=== PATIENT | male | born 1985 | race Caucasian/White ===

== ENCOUNTER → 2017-07-25 | Outpatient (CLI) | payer OTHER | LOC: FIMAGING 21:01 | PROVIDERS: ATTEND Family Medicine | DX: M51.36 Other intervertebral disc degeneration, lumbar region (principal) ==

== ENCOUNTER → 2017-08-01 | Outpatient (CLI) | payer OTHER | LOC: FIMAGING 15:23 | PROVIDERS: ATTEND Family Medicine | DX: M51.36 Other intervertebral disc degeneration, lumbar region (principal); M47.16 Other spondylosis with myelopathy, lumbar region ==

== ENCOUNTER 2018-02-22 13:57 | Emergency (ER) | payer OTHER ==
--- NOTE | 2018-02-22 14:14 | EDPHY ---
HPI/HX/ROS/PE/MDM Narrative: CHIEF COMPLAINT: Headache, stiff and painful neck HPI: The patient is a 32 y/o male with a history of chronic back pain complaining of a worsening, gradual onset, severe headache and neck pain status post L4-5 epidural injection on 02/18, 4 days ago. During the injection there were multiple needle sticks as they initially missed the appropriate location for the injection. Around 1-2 hours after the injection, he developed a consistent headache. The following day the headache worsened into a migraine that was behind his eyes. He normally has headaches in this location, but the severity is much worse than prior headaches. Due to the severity of the migraine he was unable to go to work. Yesterday he developed neck pain and stiffness that radiates down his spine associated with feeling dizzy, nauseous, and subjectively febrile. Denies numbness or weakness. His symptoms are worse in the morning and intensify when standing up. Ibuprofen, Tylenol, and Suboxone have not provided relief of his symptoms. Denies chest pain, shortness of breath , abdominal pain, urinary or bowel complaints. REVIEW OF SYSTEMS: Aside from elements discussed in the HPI, a comprehensive 10-point review of systems was reviewed and is negative. PMH: Chronic back pain, hypertension, depression, anxiety, drug abuse SOCIAL HISTORY: Friend at bedside, lives in [facility] PHYSICAL EXAM: General: Patient is lying flat in a dark room. ENT: Eyes are normal to inspection. ENT inspection normal. Neck: Normal inspection. Full range of motion. Respiratory: No respiratory distress. Breath sounds normal bilaterally. Cardiovascular: Regular rate and rhythm. Strong peripheral pulses. Normal cap refill. Abdomen: The abdomen is nontender to palpation. There are no peritoneal signs. There are normal bowel sounds. Back: No sign of infection at site of L4-5 injection. Normal to inspection. No tenderness to palpation. Skin: Normal color. No rash. Warm and dry. Extremities: Normal appearance. Full range of motion. Neuro: Oriented x3. Normal motor function. Normal sensory function. ED Course: 1503: I spoke with Dr. Miller, radiologist, who reports the patients head CT is negative for acute findings. 1523: Reassessed patient and discussed laboratory and imaging findings. He is feeling better after 30mg IV Toradol, 6mg SC Imitrex, and 1L IV NS. However, the headache is still present when he sits up. 1530: I consulted with Dr. Rosales, anesthesiologist, who agrees to consult on this patient and perform a blood patch. 1710: Dr. Rosales has completed the blood patch. Return precautions provided; patient is comfortable with this plan. MDM: This patient presents with severe positional headache after undergoing an epidural steroid injection a few days ago. I considered meningitis, but patient is afebrile, has no meningisumus and has a normal WBC count. His CTH is negative for bleed or tumor. He received a great deal of relief from IV hydration and meds, and even more from the blood patch. He feels comfortable going home. - Data Points Imaging Results: Imaging Impressions Head CT 02/22/18 14:19 Impression: Normal. Results called and discussed with Ronen Brown MD at 02/22/2018 15:03. Imaging: Discussed imaging studies w/ call or contact centre manager Radiologist, I viewed and interpreted images myself Laboratory Results: Laboratory Results 02/22/18 14:23 02/22/18 14:23 02/22/18 02/22/18 14:23 14:23 WBC 5.61 10^3/uL 10^3/uL (3.80-9.50) RBC 5.54 10^6/uL 10^6/uL (4.40-6.38) Hgb 17.8 g/dL H g/dL (13.7-17.5) Hct 50.2 % % (40.0-51.0) MCV 90.6 fL fL (81.5-99.8) MCH 32.1 pg pg (27.9-34.1) MCHC 35.5 g/dL g/dL (32.4-36.7) RDW 13.0 % % (11.5-15.2) Plt Count 253 10^3/uL 10^3/uL (150-400) MPV 9.4 fL fL (8.7-11.7) Neut % (Auto) 64.8 % % (39.3-74.2) Lymph % (Auto) 23.9 % % (15.0-45.0) [place] % (Auto) 9.3 % % (4.5-13.0) Eos % (Auto) 1.1 % % (0.6-7.6) Baso % (Auto) 0.5 % % (0.3-1.7) Nucleat RBC Rel Count 0.0 % % (0.0-0.2) Absolute Neuts (auto) 3.64 10^3/uL 10^3/uL (1.70-6.50) Absolute Lymphs (auto) 1.34 10^3/uL 10^3/uL (1.00-3.00) Absolute Monos (auto) 0.52 10^3/uL 10^3/uL (0.30-0.80) Absolute Eos (auto) 0.06 10^3/uL 10^3/uL (0.03-0.40) Absolute Basos (auto) 0.03 10^3/uL 10^3/uL (0.02-0.10) Absolute Nucleated RBC 0.00 10^3/uL 10^3/uL (0-0.01) Immature Gran % 0.4 % % (0.0-1.1) Immature Gran # 0.02 10^3/uL 10^3/uL (0.00-0.10) Sodium 134 mEq/L L mEq/L (135-145) Potassium 3.6 mEq/L mEq/L (3.3-5.0) Chloride 98 mEq/L mEq/L (97-110) Carbon Dioxide 29 mEq/l mEq/l (22-31) Anion Gap 7 mEq/L L mEq/L (8-16) BUN 11 mg/dL mg/dL (7-23) Creatinine 0.8 mg/dL mg/dL (0.7-1.3) Estimated GFR > 60 Glucose 114 mg/dL H mg/dL (70-100) Calcium 9.6 mg/dL mg/dL (8.5-10.4) Medications Given: Discontinued Medications Sodium Chloride (Ns) 1,000 mls @ 0 mls/hr IV ONCE ONE; Wide Open PRN Reason: Protocol Stop: 02/22/18 14:19 Last Admin: 02/22/18 14:33 Dose: 1,000 mls Ketorolac Tromethamine (Toradol) 30 mg IVP EDNOW ONE Stop: 02/22/18 14:19 Last Admin: 02/22/18 14:33 Dose: 30 mg Sumatriptan Succinate (Imitrex Sc Injection) 6 mg SC EDNOW ONE Stop: 02/22/18 14:21 Last Admin: 02/22/18 14:33 Dose: 6 mg General Time Seen by Provider: 02/22/18 14:11 Initial Vital Signs: Initial Vital Signs Temperature (C) 36.7 C 02/22/18 14:01 Heart Rate 84 02/22/18 14:01 Respiratory Rate 18 02/22/18 14:01 Blood Pressure 135/80 H 02/22/18 14:01 O2 Sat (%) 100 02/22/18 14:01 O2 Delivery Mode Room Air Allergies/Adverse Reactions: No Known Allergies Allergy (Verified 12/16/15 12:16) Home Medications: Medication Instructions Recorded Escitalopram Oxalate 02/22/18 Suboxone 12 mg-3 mg Sl Film 02/22/18 Venlafaxine 25MG (*) 02/22/18 Departure - Departure Disposition: Home, Routine, Self-Care Clinical Impression: Post-dural puncture headache Migraine headache Qualifiers: Migraine type: unspecified Status migrainosus presence: with status migrainosus Intractability: not intractable Qualified Code(s): G43.901 - Migraine, unspecified, not intractable, with status migrainosus Post-procedural headache Qualifiers: Encounter type: initial encounter Qualified Code(s): T81.89XA - Other complications of procedures, not elsewhere classified, initial encounter Condition: Good Instructions: Migraine Headache (ED), Acute Headache (ED), Epidural Blood Patch (DC) Additional Instructions: Do not perform any strenuous physical activity for 72 hours. Follow-up with your primary care physician within 72 hours. Return to the emergency department immediately for recurrence of headache, nausea, vomiting, numbness, weakness, neck pain, fever or other concerns. Use Tylenol and/or ibuprofen as directed. Referrals: Bart Farah DO [Doctor of Osteopathy] - As per Instructions Report Scribed for: Ronen Brown Report Scribed by: Rebecca Blanton Date of Report: 02/22/18 Time of Report: 14:14 Physician Review and Approval Statement: Portions of this note were transcribed by an ED scribe. I personally performed the history, physical exam, and medical decision making; and confirm the accuracy of the information in the transcribed note.
[2018-02-22] MEDS ORDERED: NS 1,000 ML IV ONE (14:18)
[2018-02-22] MEDS ORDERED: KETOROLAC 30 MG/1 ML SDV IVP ONE (14:18)
[2018-02-22] MEDS ORDERED: SUMAtriptan 6 MG/0.5 ML VIAL SC ONE (14:20)
[2018-02-22 14:36] LABS: PLATELET COUNT 253 10^3/uL (150-400)
--- NOTE | 2018-02-22 17:06 | PDCONSULT ---
Washer Operator Note: Epidural blood patch Pt. 32y/o male after epidural steroids injection developed headache. Pt is healthy male with no other medical problems. PMH Healthy Allergies NKA Meds None PE: aaox3 in no distress Lungs clear heart no murmur appreciated Awc1, tmd 3fb, neck from Assessement Post dural punctrure headache Plan: Epidural blood patch Epidural blood Patch note: Area prepped and drapped back and right UE. Blood drawn sterily 20ml from r antecubital vein L2/L3 epidural space accessed by tuohy needle 18g PASQUALE 7cm Blood injected 15ml q5ml no complications, paresthesia noted. Thank you Connie
[2018-02-22 17:49] VITALS: BP 117/66
== END 2018-02-22 17:44 | disposition home or self-care (01) ==
DX: T88.59XA Other complications of anesthesia, initial encounter (principal); G43.901 Migraine, unspecified, not intractable, with status migrainosus; I10 Essential (primary) hypertension; E86.9 Volume depletion, unspecified; Y82.8 Other medical devices associated with adverse incidents
CPT/HCPCS: 96374; J1885; J3030

== ENCOUNTER 2018-07-22 00:56 | Emergency (ER) | payer OTHER ==
[2018-07-22] MEDS ORDERED: fentaNYL 100 MCG/2 ML INJ IVP ONE (01:21)
[2018-07-22] MEDS ORDERED: ASPIRIN 81 MG CHEWABLE TAB PO ONE (01:21)
--- NOTE | 2018-07-22 01:22 | EDPHY ---
H & P Stated Complaint: L SIDED CP,SOB X 1 HR Time Seen by Provider: 07/22/18 01:12 HPI/ROS: Chief Complaint: Chest pain HPI: 32-year-old male had sudden onset of left-sided chest pain while sleeping 1 hr ago. Patient states that hurts to take a deep breath. It is nonradiating. Does not have a history of similar episodes in the past. Does not smoke. No family history of coronary artery disease or sudden cardiac . Pain is a 10/10. Is associated with some shortness of breath and a sensation he cannot take a deep breath. Has had recent cough and was diagnosed with adenovirus by his primary care physician earlier in the day. No nausea vomiting or diarrhea. No fevers or chills. ROS: 10 systems were reviewed and were negative except those elements noted in the HPI. PMH: Chronic back pain Social History: No smoking, occasional alcohol, no recreational drug use Family History: non-contributory Physical Exam: Gen: Awake, Alert, No Distress HEENT: Nose: no rhinorrhea Eyes: PERRLA, EOMI Mouth: Moist mucosa Neck: Supple, no JVD Chest: nontender, lungs clear to auscultation Heart: S1, S2 normal, no murmur Abd: Soft, non-tender, no guarding Back: no CVA tenderness, no midline tenderness Ext: no edema, non-tender Skin: no rash Neuro: CN II-XII intact, Sensation grossly intact, Strength 5/5 in bilateral upper and lower extremities - Personal History Current Tetanus Diphtheria and Acellular Pertussis (TDAP): Unsure Tetanus Vaccine Date: within 10 years - Medical/Surgical History Hx Asthma: No Hx Chronic Respiratory Disease: No Hx Diabetes: No Hx Cardiac Disease: No Hx Renal Disease: No Hx Cirrhosis: No Hx Alcoholism: No Hx HIV/AIDS: No Hx Splenectomy or Spleen Trauma: No Other PMH: PMH: depression, HTN, back pain, anxiety, eye surgery, drug abuse - Social History Smoking Status: Former smoker Constitutional: Initial Vital Signs Temperature (C) 37.0 C 07/22/18 00:56 Heart Rate 114 H 07/22/18 00:56 Respiratory Rate 16 07/22/18 00:56 Blood Pressure 147/106 H 07/22/18 00:56 O2 Sat (%) 95 07/22/18 00:56 O2 Delivery Mode Nasal Cannula O2 (L/minute) 2 Allergies/Adverse Reactions: No Known Allergies Allergy (Verified 12/16/15 12:16) Home Medications: Medication Instructions Recorded Azithromycin [Zithromax] 250 mg PO DAILY #4 tab 07/22/18 Hydrocodone/Acetaminophen 1 - 2 each PO Q4-6PRN PRN #10 07/22/18 [Hydrocodon-Acetaminophen 5-325] tablet Medical Decision Making - Diagnostics EKG Interpretation: ECG time 1:03 a.m., sinus rhythm with a rate 96, normal axis, there is evidence of early repolarization with possible left anterior fascicular block. No acute ST or T-wave changes. ED Course/Re-evaluation: 32-year-old male with left-sided chest pain. There is a left sided infiltrate on his chest x-ray. ECG is unremarkable. Troponins x2 are negative. D-dimer is normal. He has been treated with oral azithromycin. Will discharge with a full 5 day course. Refer for outpatient follow-up, return for worsening. I do not see any evidence of acute coronary syndrome at this time. Does not have any risk factors for coronary disease. I have reviewed the results of the initial diagnostic testing and the risk factors with the patient, including the results of the troponin and the ECG. We have also discussed the results of the repeat troponin. The patient understands that since these are negative, the risk of having a heart attack or heart complication within the next 30 days is 1%, or 1/100. We discussed the patient's personal risk level evaluation and we discussed the importance of follow-up. If their symptoms are to worsen or if they are unable to get follow- up with one-week the patient will return to the emergency department. The decision to be discharged for outpatient follow-up was made by a shared decision making process between myself and the patient. - Data Points Laboratory Results: Laboratory Results 07/22/18 01:31 07/22/18 01:31 07/22/18 07/22/18 07/22/18 04:31 01:34 01:31 WBC RBC Hgb Hct MCV MCH MCHC RDW Plt Count MPV Neut % (Auto) Lymph % (Auto) [place]ades % (Auto) Eos % (Auto) Baso % (Auto) Nucleat RBC Rel Count Absolute Neuts (auto) Absolute Lymphs (auto) Absolute Monos (auto) Absolute Eos (auto) Absolute Basos (auto) Absolute Nucleated RBC Immature Gran % Immature Gran # D-Dimer Sodium 140 mEq/L mEq/L (135-145) Potassium 4.2 mEq/L mEq/L (3.3-5.0) Chloride 103 mEq/L mEq/L (97-110) Carbon Dioxide 26 mEq/l mEq/l (22-31) Anion Gap 11 mEq/L mEq/L (6-14) BUN 16 mg/dL mg/dL (7-23) Creatinine 0.9 mg/dL mg/dL (0.7-1.3) Estimated GFR > 60 Glucose 109 mg/dL H mg/dL (70-100) Calcium 9.0 mg/dL mg/dL (8.5-10.4) POC Troponin I 0.00 ng/mL ng/mL 0.00 ng/mL ng/mL (0.00-0.08) (0.00-0.08) 07/22/18 07/22/18 01:31 01:31 WBC 15.62 10^3/uL H 10^3/uL (3.80-9.50) RBC 4.96 10^6/uL 10^6/uL (4.40-6.38) Hgb 15.8 g/dL g/dL (13.7-17.5) Hct 45.7 % % (40.0-51.0) MCV 92.1 fL fL (81.5-99.8) MCH 31.9 pg pg (27.9-34.1) MCHC 34.6 g/dL g/dL (32.4-36.7) RDW 12.6 % % (11.5-15.2) Plt Count 250 10^3/uL 10^3/uL (150-400) MPV 8.9 fL fL (8.7-11.7) Neut % (Auto) 81.4 % H % (39.3-74.2) Lymph % (Auto) 7.9 % L % (15.0-45.0) Glades % (Auto) 9.4 % % (4.5-13.0) Eos % (Auto) 0.6 % % (0.6-7.6) Baso % (Auto) 0.3 % % (0.3-1.7) Nucleat RBC Rel Count 0.0 % % (0.0-0.2) Absolute Neuts (auto) 12.71 10^3/uL H 10^3/uL (1.70-6.50) Absolute Lymphs (auto) 1.23 10^3/uL 10^3/uL (1.00-3.00) Absolute Monos (auto) 1.47 10^3/uL H 10^3/uL (0.30-0.80) Absolute Eos (auto) 0.10 10^3/uL 10^3/uL (0.03-0.40) Absolute Basos (auto) 0.05 10^3/uL 10^3/uL (0.02-0.10) Absolute Nucleated RBC 0.00 10^3/uL 10^3/uL (0-0.01) Immature Gran % 0.4 % % (0.0-1.1) Immature Gran # 0.06 10^3/uL 10^3/uL (0.00-0.10) D-Dimer 0.40 ug/mLFEU ug/mLFEU (0.00-0.50) Sodium Potassium Chloride Carbon Dioxide Anion Gap BUN Creatinine Estimated GFR Glucose Calcium POC Troponin I Medications Given: Discontinued Medications Hydrocodone Bitart/Acetaminophen ([place] 5/325) 2 tab PO EDNOW ONE Stop: 07/22/18 05:32 Last Admin: 07/22/18 05:39 Dose: 2 tab Aspirin (Aspirin) 324 mg PO EDNOW ONE Stop: 07/22/18 01:22 Last Admin: 07/22/18 01:35 Dose: 324 mg Azithromycin (Zithromax) 500 mg PO EDNOW ONE PRN Reason: Protocol Stop: 07/22/18 02:53 Last Admin: 07/22/18 03:01 Dose: 500 mg Fentanyl (Sublimaze) 50 mcg IVP EDNOW ONE Stop: 07/22/18 01:22 Last Admin: 07/22/18 01:36 Dose: 50 mcg Ketorolac Tromethamine (Toradol) 15 mg IVP EDNOW ONE Stop: 07/22/18 02:53 Last Admin: 07/22/18 03:02 Dose: 15 mg Propofol (Diprivan) 60 mg IVP EDNOW ONE Stop: 07/22/18 05:36 Last Admin: 07/22/18 05:46 Dose: Not Given Point of Care Test Results: Chemistry 07/22/18 07/22/18 04:31 01:34 POC Troponin I 0.00 ng/mL ng/mL 0.00 ng/mL ng/mL (0.00-0.08) (0.00-0.08) Departure - Departure Disposition: Home, Routine, Self-Care Clinical Impression: Pneumonia Condition: Good Instructions: Hydrocodone/Acetaminophen (By mouth), Pneumonia (ED) Additional Instructions: Alternate acetaminophen (1000 mg) with ibuprofen (400 mg) every 4 hours as needed for fevers, chills, aches or pain. You may take hydrocodone with acetaminophen for breakthrough pain. Take her full course of antibiotics. Follow up with primary care physician in 2-3 days for further evaluation. Return to the emergency department for worsening pain, worsening shortness of breath, cough, uncontrolled fevers or chills, or any other concerns. Referrals: NONE *PRIMARY CARE P,. [Primary Care Provider] - As per Instructions Ronen Hussein DO [Medical Doctor] - As per Instructions Prescriptions: Azithromycin [Zithromax] 250 mg PO DAILY #4 tab Hydrocodone/Acetaminophen [Hydrocodon-Acetaminophen 5-325] 1 - 2 each PO Q4- 6PRN PRN #10 tablet PRN Reason: Pain, Severe
[2018-07-22 01:44] LABS: PLATELET COUNT 250 10^3/uL (150-400)
[2018-07-22] MEDS ORDERED: AZITHROMYCIN 250 MG TAB PO ONE (02:52)
[2018-07-22] MEDS ORDERED: KETOROLAC 15 MG/1 ML SDV IVP ONE (02:52)
[2018-07-22] MEDS ORDERED: HYDROCODONE/APAP 5/325 TAB PO ONE (05:31)
[2018-07-22] MEDS ORDERED: PROPOFOL 200 MG/20 ML VIAL IVP ONE (05:35)
[2018-07-22 06:51] VITALS: BP 132/72
--- NOTE | 2018-07-22 07:39 | CPEKG ---
Test Reason : OPEN Blood Pressure : / mmHG Vent. Rate : 096 BPM Atrial Rate : 096 BPM P-R Int : 153 ms QRS Dur : 102 ms QT Int : 335 ms P-R-T Axes : 064 -68 051 degrees QTc Int : 424 ms Sinus rhythm LAD, consider left anterior fascicular block ST elev, probable normal early repol pattern Confirmed by Adam Heath ([id number]) on 07/22/2018 7:38:42 AM Referred By: Confirmed By:Adam Heath
== END 2018-07-22 06:45 | disposition home or self-care (01) ==
DX: J18.1 Lobar pneumonia, unspecified organism (principal); I10 Essential (primary) hypertension; M54.9 Dorsalgia, unspecified; G89.29 Other chronic pain; Z87.891 Personal history of nicotine dependence
CPT/HCPCS: 84484-PO; 96374; J1885; J3010